=== PATIENT | female | born 1935 | race Caucasian/White ===

== ENCOUNTER 2016-08-23 17:16 | Inpatient (IN) | payer MEDICARE ==
[~2016-08-23] VITALS: Ht 152.4 cm
[2016-08-23] MEDS ORDERED: VISTARIL50 MG PO (17:28)
[2016-08-23] MEDS ORDERED: NAMENDA XR28 M1 PO (17:30)
[2016-08-23] MEDS ORDERED: ASPIRIN ADULT L81 M1 PO (17:31)
[2016-08-23] MEDS ORDERED: CLARITIN10 MG PO (17:31)
[2016-08-23] MEDS ORDERED: DEPAKOTE500 MG PO (17:33)
[2016-08-23] MEDS ORDERED: DEPAKOTE250 MG PO (17:33)
[2016-08-23] MEDS ORDERED: RIVASTIGMINE TAR6 M1 PO (17:34)
[2016-08-23] MEDS ORDERED: LOPRESSOR25 MG PO (17:35)
[2016-08-23] MEDS ORDERED: REMERON15 M2 PO (17:36)
[2016-08-23] MEDS ORDERED: OMEPRAZOLE D/R20 MG PO (17:37)
[2016-08-23] MEDS ORDERED: VITAMIN D50000 UNIT PO (17:38)
[2016-08-23] MEDS ORDERED: [UNRECOGNIZED DRUG - OTHER] PO (20:20)
[2016-08-23] MEDS ORDERED: TYLENOL325 M2 PO (20:24)
[2016-08-23 20:43] VITALS: BP 140/71
[2016-08-23 20:51] VITALS: BP 140/71
[2016-08-24 07:11] LABS: BASO # 0.1 10*3/uL (0.0-0.1); BASO % 0.7 % (0.0-1.0); EOS # 0.3 10*3/uL (0.0-0.4); EOS % 3.9 % (1.0-4.0); HEMATOCRIT 38.4 % (37.0-47.0); HEMOGLOBIN 12.3 g/dl (12.0-16.0); LYMPH # 2.1 10*3/uL (1.3-4.4); LYMPH % 25.7 % (27.0-41.0); MEAN CELL VOLUME 98.5 fl (81.0-99.0); MEAN CORPUSCULAR HGB 31.5 pg (27.0-31.0); MEAN PLATELET VOLUME 11.2 fl (9.6-12.3); MONO # 0.9 10*3/uL (0.1-1.0); MONO % 10.8 % (3.0-9.0); NEUT # 4.7 10*3/uL (2.3-7.9); NEUT % 58.4 % (47.0-73.0); PLATELET COUNT AUTOMATED 188 10*3/uL (130-400); RED CELL DISTRI WIDTH 15.5 % (0-14.5)
[2016-08-24 07:35] LABS: ALBUMIN 2.8 gm/dl (3.1-4.5); BILIRUBIN, TOTAL 0.4 mg/dl (0.2-1.0); BUN 20 mg/dl (7-24); CARBON DIOXIDE 29 mmol/L (21-32); CHLORIDE 104 mmol/L (98-107); EST GLOM FILT AFRICAN AMERICAN > 60 ml/min; GLUCOSE 74 mg/dL (65-99); POTASSIUM 3.7 mmol/L (3.5-5.1); SGOT/AST 16 IU/L (3-35); SGPT/ALT 22 U/L (12-78); SODIUM 142 mmol/L (136-145); TOTAL PROTEIN 6.8 gm/dL (6.4-8.2)
[2016-08-24 07:40] LABS: VITAMIN D, 25-HYDROXY 37.6 ng/mL (30-100)
[2016-08-24 07:41] LABS: ALKALINE PHOSPHATASE 68 U/L (45-117)
[2016-08-24 08:07] VITALS: BP 155/51
[2016-08-24 21:15] VITALS: BP 122/67
[2016-08-25 07:52] VITALS: BP 134/82
[2016-08-25 21:45] VITALS: BP 130/90
[2016-08-26 07:48] VITALS: BP 118/43
[2016-08-26 20:00] VITALS: BP 132/79
[2016-08-27 07:11] LABS: BILIRUBIN NEGATIVE (NEGATIVE); BLOOD TRACE-INTACT (NEGATIVE); CLARITY SL CLOUDY (CLEAR); COLOR YELLOW (YELLOW); GLUCOSE NEGATIVE (NEGATIVE); KETONE TRACE (NEGATIVE); LEUKO ESTERASE TRACE (NEGATIVE); NITRITE NEGATIVE (NEGATIVE); PROTEIN NEGATIVE (NEGATIVE)
[2016-08-27 08:03] LABS: BACTERIA 2+; CALCIUM OXALATE CRYSTALS 1+; MUCOUS 1+; URINE REFLEX COMMENT YES (NO)
[2016-08-27 08:07] VITALS: BP 148/85
[2016-08-27 20:24] VITALS: BP 122/73
[2016-08-28 10:45] VITALS: BP 146/78
[2016-08-28 13:14] VITALS: BP 137/80
[2016-08-28 20:01] VITALS: BP 136/84
[2016-08-29 08:07] VITALS: BP 135/76
[2016-08-29 20:00] VITALS: BP 120/98
[2016-08-30 08:03] VITALS: BP 136/71
[2016-08-30 20:00] VITALS: BP 120/86
[2016-08-31 08:19] VITALS: BP 135/70
[2016-08-31 20:00] VITALS: BP 132/80
== END 2016-09-01 02:05 | disposition short-term general hospital (02) | DRG 57 ==
LOC: 3N 17:16
PROVIDERS: Psychiatry & Neurology Psychiatry
DX: G30.1 Alzheimer's disease with late onset (principal); S12.120A Other displaced dens fracture, initial encounter for closed fracture; F33.9 Major depressive disorder, recurrent, unspecified; F02.81 Dementia in other diseases classified elsewhere, unspecified severity, with behavioral disturbance; F23 Brief psychotic disorder; F41.1 Generalized anxiety disorder; K21.9 Gastro-esophageal reflux disease without esophagitis; I10 Essential (primary) hypertension; Z88.8 Allergy status to other drugs, medicaments and biological substances; E55.9 Vitamin D deficiency, unspecified; J30.2 Other seasonal allergic rhinitis; W18.30XA Fall on same level, unspecified, initial encounter; Y93.89 Activity, other specified; Y92.230 Patient room in hospital as the place of occurrence of the external cause; Y99.8 Other external cause status; F63.9 Impulse disorder, unspecified